=== PATIENT | female | born 1995 | race Caucasian/White ===

== ENCOUNTER 2019-11-15 18:55 | Emergency (ER) | payer OTHER ==
[~2019-11-15] VITALS: Ht 157.5 cm; Wt 88.5 kg
[2019-11-15 19:24] VITALS: Ht 157.5 cm; Wt 88.5 kg
[2019-11-15 21:18] VITALS: BP 125/80
== END 2019-11-15 21:18 | disposition home or self-care (01) ==
LOC: ED 18:55
DX: H61.22 Impacted cerumen, left ear (principal)

== ENCOUNTER 2019-11-24 23:32 | Emergency (ER) | payer OTHER ==
[~2019-11-24] VITALS: Ht 157.5 cm; Wt 87.5 kg
[2019-11-24 23:36] VITALS: BP 115/65; Ht 157.5 cm; Wt 87.5 kg
== END 2019-11-25 01:48 | disposition home or self-care (01) ==
LOC: ED 23:32
DX: H69.91 Unspecified Eustachian tube disorder, right ear (principal)